=== PATIENT | female | born 2000 | race Caucasian/White ===

== ENCOUNTER 2019-01-04 20:06 | Observation (INO) | payer OTHER ==
[2019-01-04] MEDS ORDERED: NS 1,000 ML IV ONE (20:26)
--- NOTE | 2019-01-04 20:34 | EDPHY ---
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 She has been feeling somewhat under the weather for the last week with cough and runny nose and sore throat. Yesterday she developed a fever. She has been told in the past the for fever gets high enough she is to present to the emergency department. She saw an urgent care earlier today at performed strep test that was negative but apparently did no other testing. She denies abdominal pain or dysuria. She denies rash. Her mother states that she has received extra vaccinations secondary to the splenectomy. REVIEW OF SYSTEMS: Aside from elements discussed in the HPI, a comprehensive 10-point review of systems was reviewed and is negative. PMH: TTP. Splenectomy. SOCIAL HISTORY: Single. Student. PHYSICAL EXAM: General:Patient is alert, in no acute distress. She looks quite well. ENT:Eyes are normal to inspection. ENT inspection normal. Neck: Normal inspection. Full range of motion. Respiratory:No respiratory distress. Breath sounds normal bilaterally. Cardiovascular: Regular rate and rhythm. Strong peripheral pulses. Normal cap refill. Abdomen:The abdomen is nontender to palpation. There are no peritoneal signs. There are normal bowel sounds. Back: Normal to inspection. No tenderness to palpation. Skin: Normal color. No rash. Warm and dry. Extremities: Normal appearance. Full range of motion. Neuro: Oriented x3. Normal motor function. Normal sensory function. ED Course: I consulted Dr. Martin from Infectious Disease. Patient accepted for admission hospice by Dr. Milan. 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 Am unable to determine a source for her infection. Given lack of source and this clinical picture, I think she would benefit from observation in the hospital overnight and possibly empiric antibiotics. I will defer this selection to the hospital service. The patient is comfortable with this plan. Despite her lab values, she is quite well-appearing and her blood pressure is normal, therefore I do not think lactate is indicated. - Data Points Imaging Results: Imaging Impressions Chest X-Ray 01/04/19 20:26 Impression: Clear lungs. No pneumonia. Laboratory Results: Laboratory Results 01/04/19 20:45 01/04/19 20:45 01/04/19 01/04/19 01/04/19 21:30 20:45 20:45 WBC RBC Hgb Hct MCV MCH MCHC RDW Plt Count MPV Neut % (Auto) Lymph % (Auto) Bland % (Auto) Eos % (Auto) Baso % (Auto) Nucleat RBC Rel Count Absolute Neuts (auto) Absolute Lymphs (auto) Absolute Monos (auto) Absolute Eos (auto) Absolute Basos (auto) Absolute Nucleated RBC Immature Gran % Immature Gran # RBC/WBC/PLT Morphology Platelet Estimate Sodium Potassium Chloride Carbon Dioxide Anion Gap BUN Creatinine Estimated GFR Glucose Calcium Procalcitonin Pending Urine Color YELLOW Urine Appearance CLEAR Urine pH 6.0 (5.0-7.5) Ur Specific [place] 1.014 (1.002-1.030) Urine Protein NEGATIVE (NEGATIVE) Urine Ketones NEGATIVE (NEGATIVE) Urine Blood NEGATIVE (NEGATIVE) Urine Nitrate NEGATIVE (NEGATIVE) Urine Bilirubin NEGATIVE (NEGATIVE) Urine Urobilinogen 4.0 EU H EU (0.2-1.0) Ur Leukocyte Esterase NEGATIVE (NEGATIVE) Urine Glucose NEGATIVE (NEGATIVE) Nasal Influenza A PCR NEGATIVE FOR FLU A (NEGATIVE) Nasal Influenza B PCR NEGATIVE FOR FLU B (NEGATIVE) 01/04/19 01/04/19 20:45 20:45 WBC 24.26 10^3/uL H 10^3/uL (3.80-9.50) RBC 4.67 10^6/uL 10^6/uL (4.18-5.33) Hgb 12.8 g/dL g/dL (12.6-16.3) Hct 37.2 % L % (38.0-47.0) MCV 79.7 fL L fL (81.5-99.8) MCH 27.4 pg L pg (27.9-34.1) MCHC 34.4 g/dL g/dL (32.4-36.7) RDW 14.0 % % (11.5-15.2) Plt Count 459 10^3/uL H 10^3/uL (150-400) MPV 10.0 fL fL (8.7-11.7) Neut % (Auto) 71.2 % % (39.3-74.2) Lymph % (Auto) 11.3 % L % (15.0-45.0) Bland % (Auto) 15.7 % H % (4.5-13.0) Eos % (Auto) 0.7 % % (0.6-7.6) Baso % (Auto) 0.6 % % (0.3-1.7) Nucleat RBC Rel Count 0.0 % % (0.0-0.2) Absolute Neuts (auto) 17.27 10^3/uL H 10^3/uL (1.70-6.50) Absolute Lymphs (auto) 2.74 10^3/uL 10^3/uL (1.00-3.00) Absolute Monos (auto) 3.81 10^3/uL H 10^3/uL (0.30-0.80) Absolute Eos (auto) 0.17 10^3/uL 10^3/uL (0.03-0.40) Absolute Basos (auto) 0.15 10^3/uL H 10^3/uL (0.02-0.10) Absolute Nucleated RBC 0.00 10^3/uL 10^3/uL (0-0.01) Immature Gran % 0.5 % % (0.0-1.1) Immature Gran # 0.12 10^3/uL H 10^3/uL (0.00-0.10) RBC/WBC/PLT Morphology TNP Platelet Estimate TNP Sodium 138 mEq/L mEq/L (135-145) Potassium 3.7 mEq/L mEq/L (3.5-5.2) Chloride 102 mEq/L mEq/L (97-110) Carbon Dioxide 23 mEq/l mEq/l (22-31) Anion Gap 13 mEq/L mEq/L (6-14) BUN 8 mg/dL mg/dL (7-23) Creatinine 0.8 mg/dL mg/dL (0.6-1.0) Estimated GFR > 60 Glucose 108 mg/dL H mg/dL (70-100) Calcium 9.3 mg/dL mg/dL (8.5-10.4) Procalcitonin Urine Color Urine Appearance Urine pH Ur Specific [place] Urine Protein Urine Ketones Urine Blood Urine Nitrate Urine Bilirubin Urine Urobilinogen Ur Leukocyte Esterase Urine Glucose Nasal Influenza A PCR Nasal Influenza B PCR Medications Given: Discontinued Medications Acetaminophen (Tylenol) 650 mg PO EDNOW ONE Stop: 01/04/19 21:30 Last Admin: 01/04/19 21:36 Dose: 650 mg Sodium Chloride (Ns) 1,000 mls @ 0 mls/hr IV ONCE ONE; Wide Open PRN Reason: Protocol Stop: 01/04/19 20:27 Last Admin: 01/04/19 21:11 Dose: 1,000 mls General Time Seen by Provider: 01/04/19 20:25 Initial Vital Signs: Initial Vital Signs Temperature (C) 39.3 C H 01/04/19 20:11 Heart Rate 141 H 01/04/19 20:11 Respiratory Rate 20 01/04/19 20:11 Blood Pressure 130/81 H 01/04/19 20:11 O2 Sat (%) 95 01/04/19 20:11 O2 Delivery Mode Room Air Allergies/Adverse Reactions: No Known Allergies Allergy (Unverified 01/04/19 20:09) Home Medications: Medication Instructions Recorded Escitalopram Oxalate [Lexapro 10 10 mg PO HS 01/04/19 MG] Norethindrone-E.estradiol-Iron [Lo 1 each PO HS 01/04/19 Loestrin Fe 1-10 Tablet] Acetaminophen [Tylenol 325mg (*)] 325 - 650 mg PO Q6 PRN 01/05/19 Amoxicillin/Clavulanate Pot 875 mg PO BID #14 tab 01/05/19 [Augmentin 875 MG TAB (*)] Benzocaine/Menthol 15/4 [Cepacol 1 ea PO PRN PRN lozenge 01/05/19 Lozenge] Codeine Phosphate/Guaifenesin 120 ml PO Q6HRS PRN #1 btl 01/05/19 [Guaifenesin-Codeine Syrup] D-Methorphan/PE/Acetaminophen 1 each PO DAILY 01/05/19 [Daytime Cold Multi-Symp Gelcap] Dm/Acetaminophen/Doxylamine [Night 1 each PO HS 01/05/19 Time Cold-Flu Rlf Sftgl] Fexofenadine/Pseudoephedrine 1 each PO BID 01/05/19 [Luly-D 12 Hour Tablet] Ibuprofen [Motrin (*)] 400 mg PO Q4HRS PRN tab 01/05/19 Triamcinolone Acetonide [Nasacort] 2 spray NS DAILY 01/05/19 guaiFENesin [Mucinex 600 MG (*)] 600 mg PO DAILY 01/05/19 Departure - Departure Disposition: [facility]
[2019-01-04 20:56] LABS: PLATELET COUNT 459 10^3/uL (150-400)
[2019-01-04] MEDS ORDERED: ACETAMINOPHEN 325 MG TAB PO ONE (21:29)
[2019-01-04] MEDS ORDERED: ONDANSETRON DISINTEGRATING 4 MG TAB PO PRN (23:34)
[2019-01-04] MEDS ORDERED: diphenhydrAMINE 25 MG CAP PO PRN (23:34)
[2019-01-04] MEDS ORDERED: ACETAMINOPHEN 325 MG TAB PO PRN (23:34)
[2019-01-04] MEDS ORDERED: ONDANSETRON 4 MG/2 ML VIAL IVP PRN (23:34)
[2019-01-04] MEDS ORDERED: IBUPROFEN 200 MG TAB PO PRN (23:34)
[2019-01-04] MEDS ORDERED: HYDROcodone/CPM TUSSIONEX 5 ML UDSYR PO PRN (23:37)
[2019-01-04] MEDS ORDERED: CEPACOL LOZENGE PO PRN (23:39)
--- NOTE | 2019-01-04 23:50 | PDGENHP ---
History and Physical - Chief Complaint fever - History of Present Illness Source - Patient provides history and appears reliable. Mother at bedside and supplements details. EMR reviewed and case discussed with ED provider. HPI - Pleasant 18 yo F with pmh significant for TTP s/p splenectomy 2009 otherwise healthy female who presents to the ED today with complaints of fever at home up to 103F. Patient notes a 1 week history of nasal congestion, sore throat and nonproductive cough. Patient denies any nausea/vomiting/diarrhea. no abdominal pain, dysuria/hematuria. Patient with multiple + sick contacts as she is a Student at and lives in the dorm. History Information - Allergies/Home Medication List Allergies/Adverse Reactions: No Known Allergies Allergy (Unverified 01/04/19 20:09) Home Medications: Escitalopram Oxalate [Lexapro 10 MG] 01/04/19 [Last Taken Unknown] Norethindrone-E.estradiol-Iron [Lo Loestrin Fe 1-10 Tablet] 01/04/19 [Last Taken Unknown] I have personally reviewed and updated: family history, medical history, social history, surgical history - Past Medical History Additional medical history: hx TTP s/p splenectomy - Surgical History Additional surgical history: splenectomy - Family History Additional family history: neg for CAD, HTN, cancer - Social History Smoking Status: Never smoked Alcohol Use: None Drug Use: Marijuana (edibles prn ) Additional social history: Patient is currently student at . She is from [place]. Review of Systems Review of Systems: ROS: 10pt was reviewed & negative except for what was stated in HPI & below Constitutional: Reports: fever, malaise, recent illness (See HPI). Denies: chills EENMT: Reports: nose congestion, sore throat. Denies: blurred vision Cardiac: Denies: chest pain, edema, lightheadedness, palpitations Respiratory: Reports: cough. Denies: shortness of breath, wheezing Gastrointestinal: Denies: vomitting, abdominal pain, diarrhea, nausea Genitourinary: Reports: no symptoms Muscolosketal: Reports: no symptoms Skin: Reports: no symptoms Neurological: Reports: no symptoms Hematologic/Lymphatic: Reports: no symptoms Physical Exam Physical Exam: Selected Entries 01/04/19 20:11 Heart Rate 141 H Respiratory 20 Rate O2 Sat (%) 95 Temperature (C) 39.3 C H Blood Pressure 130/81 H Mean Arterial 97 Pressure (MAP) Temperature Oral Source Temp Pulse Resp BP Pulse Ox 37.3 C 105 H 16 113/76 93 01/04/19 23:36 01/04/19 23:36 01/04/19 23:36 01/04/19 23:36 01/04/19 23:36 Constitutional: no apparent distress, other (NAD. Pleasant young adult female is lying quietly in bed. Intermittent cough. Appears ill but nontoxic.) Eyes: PERRL (Decreased reactivity light bilaterally but symmetric.), anicteric sclera, EOMI, No scleral injection Ears, Nose, Mouth, Throat: dry mucous membranes, other (No nasal discharge. Patient does have tenderness to percussion over her maxillary sinuses), No poor dentition Cardiovascular: regular rate and rhythym, no murmur, rub, or gallop, pulses symmetric bilaterally, No edema Peripheral Pulses: 2+: dorsalis-pedis (R), dorsalis-pedis (L) Respiratory: no respiratory distress, no rales or rhonchi, clear to auscultation , inspiratory crackles, other (Occasional congested-sounding cough but nonproductive.) Gastrointestinal: normoactive bowel sounds, soft, non-tender abdomen, no palpable masses, No distension Genitourinary: no bladder tenderness, No mcgregor in urethra Skin: warm, normal color, no rashes or abrasions, No mottled, No rash Musculoskeletal: full muscle strength (Patient is able to sit up independently.) , No pain with ROM, No generalized weakness Neurologic: AAOx3, sensation intact bilaterally, weakness, No facial droop Psychiatric: interacting appropriately, not anxious, not encephalopathic, thought process linear, No suicidal ideation, No agitated, No poor insight, No poor judgement, No poor memory Lab Data & Imaging Review 01/05/19 04:28 01/05/19 04:28 WBC 24.26 10^3/uL (3.80-9.50) H 01/04/19 20:45 RBC 4.67 10^6/uL (4.18-5.33) 01/04/19 20:45 Hgb 12.8 g/dL (12.6-16.3) 01/04/19 20:45 Hct 37.2 % (38.0-47.0) L 01/04/19 20:45 MCV 79.7 fL (81.5-99.8) L 01/04/19 20:45 MCH 27.4 pg (27.9-34.1) L 01/04/19 20:45 MCHC 34.4 g/dL (32.4-36.7) 01/04/19 20:45 RDW 14.0 % (11.5-15.2) 01/04/19 20:45 Plt Count 459 10^3/uL (150-400) H 01/04/19 20:45 MPV 10.0 fL (8.7-11.7) 01/04/19 20:45 Neut % (Auto) 71.2 % (39.3-74.2) 01/04/19 20:45 Lymph % (Auto) 11.3 % (15.0-45.0) L 01/04/19 20:45 [place] % (Auto) 15.7 % (4.5-13.0) H 01/04/19 20:45 Eos % (Auto) 0.7 % (0.6-7.6) 01/04/19 20:45 Baso % (Auto) 0.6 % (0.3-1.7) 01/04/19 20:45 Nucleat RBC Rel Count 0.0 % (0.0-0.2) 01/04/19 20:45 Absolute Neuts (auto) 17.27 10^3/uL (1.70-6.50) H 01/04/19 20:45 Absolute Lymphs (auto) 2.74 10^3/uL (1.00-3.00) 01/04/19 20:45 Absolute Monos (auto) 3.81 10^3/uL (0.30-0.80) H 01/04/19 20:45 Absolute Eos (auto) 0.17 10^3/uL (0.03-0.40) 01/04/19 20:45 Absolute Basos (auto) 0.15 10^3/uL (0.02-0.10) H 01/04/19 20:45 Absolute Nucleated RBC 0.00 10^3/uL (0-0.01) 01/04/19 20:45 Immature Gran % 0.5 % (0.0-1.1) 01/04/19 20:45 Immature Gran # 0.12 10^3/uL (0.00-0.10) H 01/04/19 20:45 RBC/WBC/PLT Morphology TNP 01/04/19 20:45 Platelet Estimate TNP 01/04/19 20:45 Sodium 138 mEq/L (135-145) 01/04/19 20:45 Potassium 3.7 mEq/L (3.5-5.2) 01/04/19 20:45 Chloride 102 mEq/L (97-110) 01/04/19 20:45 Carbon Dioxide 23 mEq/l (22-31) 01/04/19 20:45 Anion Gap 13 mEq/L (6-14) 01/04/19 20:45 BUN 8 mg/dL (7-23) 01/04/19 20:45 Creatinine 0.8 mg/dL (0.6-1.0) 01/04/19 20:45 Estimated GFR > 60 01/04/19 20:45 Glucose 108 mg/dL (70-100) H 01/04/19 20:45 Calcium 9.3 mg/dL (8.5-10.4) 01/04/19 20:45 Procalcitonin 0.19 ng/mL (0.02-0.10) H 01/04/19 20:45 Urine Color YELLOW 01/04/19 21:30 Urine Appearance CLEAR 01/04/19 21:30 Urine pH 6.0 (5.0-7.5) 01/04/19 21:30 Ur Specific [place] 1.014 (1.002-1.030) 01/04/19 21:30 Urine Protein NEGATIVE (NEGATIVE) 01/04/19 21:30 Urine Ketones NEGATIVE (NEGATIVE) 01/04/19 21:30 Urine Blood NEGATIVE (NEGATIVE) 01/04/19 21:30 Urine Nitrate NEGATIVE (NEGATIVE) 01/04/19 21:30 Urine Bilirubin NEGATIVE (NEGATIVE) 01/04/19 21:30 Urine Urobilinogen 4.0 EU (0.2-1.0) H 01/04/19 21:30 Ur Leukocyte Esterase NEGATIVE (NEGATIVE) 01/04/19 21:30 Urine Glucose NEGATIVE (NEGATIVE) 01/04/19 21:30 Nasal Influenza A PCR NEGATIVE FOR FLU A (NEGATIVE) 01/04/19 20:45 Nasal Influenza B PCR NEGATIVE FOR FLU B (NEGATIVE) 01/04/19 20:45 Imaging Review: X Ray Chest 2 View ___ PA and Lateral Chest Indication: Cough. Comparison: None Findings: The lungs are well aerated and clear except for minimal peribronchial thickening. No pneumothorax, consolidation, or effusion. Heart size normal. Thoracic spine has minimal biphasic curvature. Impression: Clear lungs. No pneumonia. Dictated By: Kemal Naylor MD Assessment & Plan Assessment: Pleasant 18-year-old female with history of TTP remotely status post splenectomy in 2009 who presents emergency department today with complaints of URI symptoms and new onset of fever to 103. # fever - patient has had upper respiratory symptoms ongoing for the past week. Today she did develop a high-grade fever. Given her history of splenectomy patient had previously been advised that she needs to go for antibiotics immediately.. The emergency department patient was found to be febrile, tachycardic, with a leukocytosis of nearly 25 K. Blood cultures were obtained. Patient clinically appeared to be nontoxic in her blood pressures are adequate and so lactate was not ordered upon arrival. Patient does have positive symptoms of sinusitis. Evaluation to rule out additional sources of infection including chest x-ray, urinalysis and additional labs have been negative thus far. Discussed with the patient and her mother at bedside initiation of antibiotic therapy with consultation by Infectious Disease in the morning. They are amenable to proceed broad-spectrum antibiotics. Will order Rocephin 2 g x1 for now to provide coverage for sinusitis including S pneumonia a and H influenza. After discussion with pharmacy vancomycin ordered for potential but less likely resistant S pneumo. Will plan to repeat a CBC in the morning. Procalcitonin was also added on the emergency department and found to just be minimally over the negative range. Patient reports that she is up-to-date on all her vaccinations including Pneumovax. Rapid flu is negative. Respiratory PCR is pending. Check a Monospot. Strep testing was reported to be negative at urgent care earlier in the day. # asplenia # severe sepsis without organ dysfunction. - continue supportive care IV fluids. Blood cultures pending x2 as noted above. FEN - continue IV fluids overnight. Advance diet as tolerated. Electrolytes adequate did not require replacement. PPX-SCDs. At anticoagulation if patient should stay additional day. Cor status-full Disposition-patient admitted observation status on the medical floor pending repeat lab testing, blood cultures and Infectious Disease recommendations.
[2019-01-05] MEDS: NS 1,000 ML IV SCH ×2 (00:18→09:05)
[2019-01-05] MEDS ORDERED: VANCOMYCIN HCL/NORMAL SALINE 250 ML IV ONE (00:30)
[2019-01-05] MEDS: FLUTICASONE NASAL 120 SPRAYS/16 GM MDI EACHNARE SCH ×2 (00:43→08:56)
[2019-01-05] MEDS ORDERED: PROMETHAZINE HCL 25 MG/ML INJ IVP PRN (02:53)
[2019-01-05 05:19] LABS: PLATELET COUNT 419 10^3/uL (150-400)
--- NOTE | 2019-01-05 10:06 | PCMIDPN ---
Assessment/Plan: Assessment: Plan: Subjective: This is a 18 year-old female with hx of sinusitis, TTP [facility] who presents for evaluation of intermittent fever, chills, and sore throat. Pt provides that she is not feeling much different since admission other than reduced cough and gradually improved energy levels. Objective: Vital Signs Temp Pulse Resp BP Pulse Ox 37.1 C 102 H 16 100/72 96 01/05/19 07:27 01/05/19 07:27 01/05/19 07:27 01/05/19 07:27 01/05/19 07:27 Laboratory Results 01/05/19 04:28 01/05/19 04:28 01/04/19 01/05/19 01/06/19 05:59 05:59 05:59 Intake Total 1340 1338.5 Balance 1340 1338.5 - Physical Exam General Appearance: alert, no apparent distress EENT: other (hoarse voice, maxillary sinus tenderness), No thrush Extremities: other (no peripheral stigmata of endocarditis ), No swelling Abdomen: other (healed laproscoic incisons ) Skin: normal color, warm/dry, No rash Neuro/Psych: alert, normal mood/affect, oriented x 3 - Line/s PIV Lines: other (Left mid arm ), No drainage, No erythema
--- NOTE | 2019-01-05 10:25 | PDCONSULT ---
Block Stacker Note: A/P # Febrile illness in a patient with known splenectomy, by report up-to-date on vaccination. Localizing symptoms to sinuses and positive respiratory PCR for adenovirus. 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 Will assess at follow-up visit whether they would like to wait till she moved back to [place] to proceed with this --will continue to monitor blood cultures --risk women benefits of antibiotics were discussed with patient at bedside --ER warnings about persistent fever more than 48 hr # Leukocytosis: Suspect her white count is chronically elevated, mother to try to get old records prior to outpatient visit to compare. --will repeat CBC next week Chief complaint: sore throat and productive cough Referring MD: Dr. Mullen, [facility] History of present illness: This is a 18 year-old female with hx of sinusitis, TTP [facility] who presents for evaluation of fever and chills on arrival with constant sore throat, rhinorrhea, and cough beginning about 1 week ago. Fever was present at onset with chills and sweats which was tx with ibuprofen with total relief. She went back home to [place], [place] for Spring break, took Luly-D for allergies BID, and returned to [place] by plane last weekend. Her sx returned on 01/03. Seen at [facility] yesterday morning with T-max of 103. Reports similar episode on 11/04 with T-max of 101.5 , negative workup for mononucleosis, streptococcus, and influenza and was administered Penicillin and symptoms improved but she did not take the full course. Pt provides that she is not feeling much improved since admission other than reduced cough and gradually improved energy levels. Reports associated green rhinorrhea, mild neck pain, emesis episode last night secondary to medication administration on an empty stomach, mildly decreased appetite, mild headache, sinus congestion, sore throat which does not keep her from swallowing , and coughing which has decreased with cough medicine. Although her sore throat does not keep her from swallowing it is one of her most bothersome symptoms. Fever on arrive, no temperature since admission. Denies associated night sweats, nausea, vomiting, diarrhea, abdominal pain, difficulty swallowing , shortness of breath, or skin rash. 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 Is from [place], [place] and plans to move back at the end of the spring. No cigarettes or etoh use. Allergies: 3 Allergy/AdvReac Type Severity Reaction Status Date / Time No Known Allergies Allergy Unverified 01/04/19 20:09 Medications: 3 Generic Name Dose Route Start Last Admin Trade Name Freq PRN Reason Stop Dose Admin Acetaminophen 650 mg 01/04/19 23:34 Tylenol PO 07/03/19 23:33 Q4HRS PRN Pain, Mild/Fever, Can Take PO Chlorphenir/Hydrocodone Polistirex 5 ml 01/04/19 23:37 01/05/19 00:44 Tussionex Suspension PO 07/03/19 23:36 5 ml Q12HRS PRN Administration Cough, Severe Diphenhydramine HCl 25 - 50 mg 01/04/19 23:34 01/05/19 02:04 Benadryl PO 07/03/19 23:33 25 mg Q6HRS PRN Administration Itching Fluticasone Propionate 1 sprays 01/04/19 23:45 01/05/19 08:56 Flonase Nasal Rodanthe EACHNARE 01/09/19 23:44 1 spr BID JIE Administration Sodium Chloride 1,000 mls @ 125 mls/hr 01/04/19 23:45 01/05/19 09:05 Ns IV 07/03/19 23:44 1,000 mls CONT JIE Administration Ibuprofen 400 mg 01/04/19 23:34 01/05/19 02:04 Motrin PO 07/03/19 23:33 200 mg Q4HRS PRN Administration Pain, Mild, Can Take PO Ondansetron HCl 4 mg 01/04/19 23:34 01/05/19 02:32 Zofran IVP 07/03/19 23:33 4 mg Q4HRS PRN Administration Nausea/Vomiting, Can't Take PO Ondansetron HCl 4 mg 01/04/19 23:34 Zofran Odt PO 07/03/19 23:33 Q4HRS PRN Nausea/Vomiting, Use 1st Promethazine HCl 6.25 - 12.5 mg 01/05/19 02:53 Phenergan IVP 07/04/19 02:52 Q6HRS PRN Nausea/Vomiting, Can't Take PO Throat Lozenges 1 ea 01/04/19 23:39 01/05/19 00:18 Cepacol Lozenge PO 07/03/19 23:38 1 ea PRN PRN Administration Sore Throat ROS: 10 systems were reviewed and are negative with the exception of the elements mentioned in the HPI. Patient endorses snoring with sleeping that is longstanding. Vitals: 3 Temp Pulse Resp BP Pulse Ox 37.1 C 102 H 16 100/72 96 01/05/19 07:27 01/05/19 07:27 01/05/19 07:27 01/05/19 07:27 01/05/19 07:27 Physical exam: General: alert, no apparent distress, well-nourished, well-developed in no acute distress, appears nontoxic HEENT: hoarse voice and prominent tonsils, no sinus tenderness, no scleral icterus, no conjunctival injection, oropharynx shows moist mucous membranes with no thrush Neck: supple without palpable lymphadenopathy, mild right sided submandibular tenderness to palpation Chest: clear to auscultation bilaterally without adventitious sounds, respiratory effort is normal Cardiovascular: regular rate rhythm without murmurs, gallops or rubs, no BLE edema Abdomen: soft, nontender, healed laparoscopic incisions Musculoskeletal: no cyanosis, clubbing or edema Skin: normal color, warm/dry, no rashes, no peripheral stigmata of endocarditis. Neuro/Psych: alert, normal mood/affect, oriented x 3 PIV: Left mid arm, no drainage or erythema Laboratory results: 3 WBC 25.83 10^3/uL (3.80-9.50) H 01/05/19 04:28 RBC 4.20 10^6/uL (4.18-5.33) 01/05/19 04:28 Hgb 11.6 g/dL (12.6-16.3) L 01/05/19 04:28 Hct 34.2 % (38.0-47.0) L 01/05/19 04:28 MCV 81.4 fL (81.5-99.8) L 01/05/19 04:28 MCH 27.6 pg (27.9-34.1) L 01/05/19 04:28 MCHC 33.9 g/dL (32.4-36.7) 01/05/19 04:28 RDW 14.3 % (11.5-15.2) 01/05/19 04:28 Plt Count 419 10^3/uL (150-400) H 01/05/19 04:28 MPV 10.6 fL (8.7-11.7) 01/05/19 04:28 Neut % (Auto) Not Reported 01/05/19 04:28 Lymph % (Auto) Not Reported 01/05/19 04:28 Boyle % (Auto) Not Reported 01/05/19 04:28 Eos % (Auto) Not Reported 01/05/19 04:28 Baso % (Auto) Not Reported 01/05/19 04:28 Nucleat RBC Rel Count Not Reported 01/05/19 04:28 Absolute Neuts (auto) Not Reported 01/05/19 04:28 Absolute Lymphs (auto) Not Reported 01/05/19 04:28 Absolute Monos (auto) Not Reported 01/05/19 04:28 Absolute Eos (auto) Not Reported 01/05/19 04:28 Absolute Basos (auto) Not Reported 01/05/19 04:28 Absolute Nucleated RBC Not Reported 01/05/19 04:28 Immature Gran % Not Reported 01/05/19 04:28 Seg Neutrophils % 79.6 % 01/05/19 04:28 Band Neutrophils % 0.0 % 01/05/19 04:28 Lymphocytes % 9.2 % 01/05/19 04:28 Monocytes % 10.2 % 01/05/19 04:28 Eosinophils % 1.0 % 01/05/19 04:28 Basophils % 0.0 % 01/05/19 04:28 Metamyelocytes % 0.0 % 01/05/19 04:28 Myelocytes % 0.0 % 01/05/19 04:28 Promyelocytes % 0.0 % 01/05/19 04:28 Blast Cells % 0.0 % 01/05/19 04:28 Immature Gran # Not Reported 01/05/19 04:28 Absolute Seg Neuts 20.56 10^3/uL (1.70-6.50) H 01/05/19 04:28 Absolute Band Neuts 0.00 10^3/uL (0.00-0.70) 01/05/19 04:28 Absolute Lymphocytes 2.38 10^3/uL (1.00-3.00) 01/05/19 04:28 Absolute Monocytes 2.63 10^3/uL (0.30-0.80) H 01/05/19 04:28 Absolute Eosinophils 0.26 10^3/uL (0.03-0.40) 01/05/19 04:28 Absolute Basophils 0.00 10^3/uL (0.02-0.10) L 01/05/19 04:28 Absolute Metamyelocyte 0.00 10^3/mL (0.00-0.00) 01/05/19 04:28 Absolute Myelocytes 0.00 10^3/mL (0.00-0.00) 01/05/19 04:28 Absolute Promyelocytes 0.00 10^3/uL (0.00-0.00) 01/05/19 04:28 Absolute Plasma Cells 0.00 10^3/uL (0.00-0.00) 01/05/19 04:28 Nucleated RBCs 0 /100 WBC (0-0) 01/05/19 04:28 RBC/WBC/PLT Morphology NORMAL (NORMAL) 01/05/19 04:28 Absolute Blast Cells 0.00 10^3/uL (0.00-0.00) 01/05/19 04:28 Plasma Cells % 0.0 % 01/05/19 04:28 Platelet Estimate ADEQUATE (ADEQ) 01/05/19 04:28 Sodium 140 mEq/L (135-145) 01/05/19 04:28 Potassium 3.5 mEq/L (3.5-5.2) 01/05/19 04:28 Chloride 109 mEq/L (97-110) 01/05/19 04:28 Carbon Dioxide 21 mEq/l (22-31) L 01/05/19 04:28 Anion Gap 10 mEq/L (6-14) 01/05/19 04:28 BUN 5 mg/dL (7-23) L 01/05/19 04:28 Creatinine 0.6 mg/dL (0.6-1.0) 01/05/19 04:28 Estimated GFR > 60 01/05/19 04:28 Glucose 92 mg/dL (70-100) 01/05/19 04:28 Calcium 8.3 mg/dL (8.5-10.4) L 01/05/19 04:28 Procalcitonin 0.19 ng/mL (0.02-0.10) H 01/04/19 20:45 Urine Color YELLOW 01/04/19 21:30 Urine Appearance CLEAR 01/04/19 21:30 Urine pH 6.0 (5.0-7.5) 01/04/19 21:30 Ur Specific Mission 1.014 (1.002-1.030) 01/04/19 21:30 Urine Protein NEGATIVE (NEGATIVE) 01/04/19 21:30 Urine Ketones NEGATIVE (NEGATIVE) 01/04/19 21:30 Urine Blood NEGATIVE (NEGATIVE) 01/04/19 21:30 Urine Nitrate NEGATIVE (NEGATIVE) 01/04/19 21:30 Urine Bilirubin NEGATIVE (NEGATIVE) 01/04/19 21:30 Urine Urobilinogen 4.0 EU (0.2-1.0) H 01/04/19 21:30 Ur Leukocyte Esterase NEGATIVE (NEGATIVE) 01/04/19 21:30 Urine Glucose NEGATIVE (NEGATIVE) 01/04/19 21:30 Nasal Influenza A PCR NEGATIVE FOR FLU A (NEGATIVE) 01/04/19 20:45 Nasal Influenza B PCR NEGATIVE FOR FLU B (NEGATIVE) 01/04/19 20:45 Monoscreen NEGATIVE (NEGATIVE) 01/05/19 04:28 Microbiology: 01/05/19 Respiratory panel (PCR), positive for adenovirus. 01/04/19 Blood cx (2), pending results. Imagining studies: 01/04/19 CXR impression: Clear lungs, no pneumonia. Scribe attestation: Sahara Hopkins, papo scribing for, and in the presence of, Alyssa Kearney MD. Alyssa Hopkins MD, personally performed the services described in this documentation, as scribed by Sahara Powers in my presence, and it is both accurate and complete. Greater than 55 minutes spent on this patients care, greater than 50% of time spent counseling, educating, and coordinating care regarding the above mentioned plan. Discussed with patient and mother. Care coordinated with Dr. Meza.
[2019-01-05 10:59] VITALS: BP 117/62
[2019-01-05] MEDS ORDERED: AMOXICILLIN/CLAVULANATE POT 875/125 MG TAB PO SCH (11:15)
[2019-01-05] MEDS ORDERED: guaiFENesin/CODEINE PHOS 10 ML UDCUP PO PRN (11:23)
--- NOTE | 2019-01-05 12:50 | ASDISCHSUM ---
Discharge Information Plan Status:Home with No Needs Medically Cleared to Leave:01/05/2019 Discharge Date:01/05/2019 CM D/C Disposition:Home, Routine, Self-Care ADT D/C Disposition: Projected Discharge Date:01/05/2019 Transportation at D/C:Family Discharge Delay Reason: Follow-Up Date:01/05/2019 Discharge Slot: Final Diagnosis: Placement Information Patient Contact Information Contact Name:YULI Relationship:Mother Address:[address] Work Phone: City:[facility] Phone: State/Zip Code:[place] [address] Email: Financial Information Financial Class:[employer] and PPO Plans Primary Plan Desc:[facility] Primary Plan Number:[id number] Secondary Plan Desc: Secondary Plan Number: Assessment Information LACE LACE Length of stay for Answers: Less than 1 day current admission Acuity / Level of Answers: No Care: Did the patient have an inpatient admission? Comorbidities - select Answers: Other Notes: Splenectomy 2009 all that apply # of Emergency department Answers: 1-2 visits in the last 6 months Social determinants Answers: History of substance abuse (ETOH, street drugs, prescription drugs, etc.) Score: 5 Date Signed: 01/05/2019 12:49 PM Electronically Signed By:BARI Vasquez Case Management Discharge Plan Note Case Management Discharge Discharge Order Complete? 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 Had splenectomy in 2009. ID consulted, started on antibiotics and is getting discharged independently. Her mom is here and supportive. No other CM needs identified at this time. Date Signed: 01/05/2019 12:48 PM Electronically Signed By:BARI Vasquez Intervention Information
--- NOTE | 2019-01-05 17:02 | PDDCSUM ---
Discharge Summary Discharge Summary: Date of Admission: 01/04/2019 Date of Discharge: 01/05/2019 Consults: ID Procedures: CXR Followup: ID, PCP Hospital Course Problem List: Pleasant 18-year-old female with history of TTP remotely status post splenectomy in 2009 who presents emergency department today with complaints of URI symptoms and new onset of fever to 103. # fever (adenovirus, possible sinusitis)- patient has had upper respiratory symptoms ongoing for the past week. In the emergency department patient was found to be febrile, tachycardic, with a leukocytosis of nearly 25 K. Blood cultures were obtained. Patient clinically appeared to be nontoxic in her blood pressures are adequate and so lactate was not ordered upon arrival. Patient does have positive symptoms of sinusitis. Evaluation to rule out additional sources of infection including chest x-ray, urinalysis and additional labs have been negative thus far. S/p Rocephin 2 g x1 as well as vancomycin. Patient reports that she is up-to-date on all her vaccinations including Pneumovax. Rapid flu is negative. Monospot negative. Strep testing was reported to be negative at urgent care earlier in the day. Respiratory PCR is positive for Adenovirus. ID consulted, seen by Dr. Kearney, who recommends additional 7 day course Augmentin to cover for possible sinusitis. Pt to followup in ID clinic. # asplenia # severe sepsis without organ dysfunction. - Blood cultures pending x2 as noted above. Vitals improved prior to discharge. Time spent on discharge was >35 minutes with >50% of time spent on patient education and counseling.
== END 2019-01-05 13:32 | disposition home or self-care (01) ==
LOC: F1N 23:18
PROVIDERS: ADMIT Family Medicine; ATTEND Internal Medicine Infectious Disease
DX: J34.9 Unspecified disorder of nose and nasal sinuses (principal); R65.20 Severe sepsis without septic shock; B97.0 Adenovirus as the cause of diseases classified elsewhere; R50.9 Fever, unspecified; Z90.81 Acquired absence of spleen
CPT/HCPCS: 71046; G0378; J0696; J2405; J3370